=== PATIENT | male | born 1935 | race Caucasian/White ===

== ENCOUNTER 2021-02-04 21:29 | Emergency (ER) | payer MEDICARE, SELFPAY ==
--- NOTE | 2021-02-04 | ECG_ITS ---
Test Reason : FALL Blood Pressure : / mmHG Vent. Rate : 069 BPM Atrial Rate : 069 BPM P-R Int : 140 ms QRS Dur : 080 ms QT Int : 402 ms P-R-T Axes : 074 093 059 degrees QTc Int : 430 ms Normal sinus rhythm Rightward axis Borderline ECG When compared with ECG of 07-AUG-2019 19:53, QRS axis Shifted right Referred By: Sybil Frausto Electronically Signed By:KENY BOWMAN
--- NOTE | ~2021-02-04 | CT_ITS ---
EXAMINATION: CT HEAD WITHOUT CONTRAST CLINICAL INFORMATION: Frequent falls COMPARISON: CT head 07/03/2014. TECHNIQUE: Contiguous axial imaging was performed from the skull base to vertex without intravenous administration of contrast. This CT examination was performed using dose optimization techniques as appropriate, variously including the following: *Automated exposure control *Adjustment of mA and/or kV according to patient size (this includes techniques or standardized protocols for targeted exams where dose is matched to indication/reason for exam; i.e. extremities or head) *Use of iterative reconstruction technique DLP: 705 mGy-cm FINDINGS: No intracranial hemorrhage, tumors or acute infarcts are noted. Moderate-marked diffuse commensurate prominence of ventricles and sulci is visualized. Segmental calcific atherosclerotic plaques are present in the cavernous portions of the internal carotid arteries. Bilateral ocular lens extractions are demonstrated. No significant opacification of the visualized paranasal sinuses, mastoid air cells and middle ear cavities. Bilateral soft tissue density within the external auditory canals likely representing cerumen. CT/CT head/brain wo con IMPRESSION: 1. No acute intracranial abnormalities. 2. Diffuse parenchymal volume loss the brain with findings slightly progressed compared with 07/03/2014.
--- NOTE | ~2021-02-04 | XR_ITS ---
EXAMINATION: XR CHEST CLINICAL INFORMATION: Cough COMPARISON: 08/07/2019 TECHNIQUE: Frontal view of the chest was obtained. FINDINGS: Lungs are mildly hypoinflated. Otherwise there is been no significant interval change when compared to the prior study. No significant abnormality is noted involving the heart, lungs, mediastinum, bony thorax or soft tissues. XR/XR chest 1V IMPRESSION: No acute intrathoracic disease
[2021-02-04 21:36] VITALS: BP 139/64; PULSE 76; RESP 18; TEMP 36.6; O2SAT 98
[2021-02-04 21:47] VITALS: BP 118/72; PULSE 74; RESP 15; TEMP 37; O2SAT 97; O2SAT 98; BMI 24.3
[2021-02-04 22:47] LABS: MANUAL DIFF FLAG NO
[2021-02-04 22:49] LABS: Basophils Absolute Auto 0.1 X10*3/uL (0.0-0.2); Basophils Percent Auto 0.8 % (0-2); Eosinophils Absolute Auto 0.1 X10*3/uL (0.0-0.4); Eosinophils Percent Auto 1.6 % (0-4); Hematocrit 50.1 % (42-52); Hemoglobin 16.4 g/dl (14.0-18.0); Imm Gran Abs Auto 0.05 X10*3/uL (0.00-0.03); Imm Gran Pct Auto 0.6 % (0.0-0.4); Lymphocytes Absolute Auto 1.7 X10*3/uL (1.2-4.9); Lymphocytes Percent Auto 19.4 % (20-40); Mean Corpuscular HGB Conc 32.7 g/dl (31.0-36.0); Mean Corpuscular Hemoglobin 32.9 pg (27.0-33.0); Mean Corpuscular Volume 100.6 fL (80-98); Monocytes Absolute Auto 0.4 X10*3/uL (0.1-1.2); Neutrophils Absolute Auto 6.3 X10*3/uL (2.0-8.3); Neutrophils Percent Auto 72.6 % (45-73); Platelet Count 217 X10*3/uL (160-400); Red Blood Count 4.98 X10*6/uL (4.60-5.80); Red Cell Distribution Width 14.1 % (11.0-16.0); White Blood Count 8.7 X10*3/uL (4.8-10.8)
[2021-02-04 22:54] LABS: INTERNATIONAL NORM RATIO 0.9 (0.9-1.1); Prothrombin Time 10.5 SEC (9.9-13.0)
--- NOTE | 2021-02-04 23:00 | ED.WEAKNESS ---
HPI - Weakness General Chief complaint: Weakness Stated complaint: fall weakness Time Seen by Provider: 02/04/21 22:27 Source: patient and family () Mode of arrival: ambulatory History of Present Illness HPI Narrative: 85-year-old male brought in by mother after he had some difficulty coming down the stairs whereby he slid down onto use were [place] and she denies that he hit his head or loss consciousness. She states that ?this he was not there?, but otherwise denies any recent fevers, chills, decrease in appetite and notes that her who has baseline dementia has otherwise been eating and drinking and urinating without difficulty. She does report that patient has had approximately 2 weeks of more frequent falls at home. Related Data Home Medications Medication Instructions Recorded Confirmed finasteride 5 mg tablet 5 mg PO DAILY 09/23/20 09/23/20 pantoprazole 40 mg tablet,delayed 40 mg PO DAILY 09/23/20 09/23/20 release Previous Rx's Medication Instructions Recorded cholecalciferol (vitamin D3) 50 50 mcg PO DAILY #90 cap 06/10/20 mcg (2,000 unit) capsule cyanocobalamin (vitamin B-12) 1,000 mcg PO DAILY #90 tab 06/29/20 1,000 mcg tablet gemfibrozil 600 mg tablet 600 mg PO BID 90 Days #180 tab 01/04/21 cephalexin 500 mg capsule 500 mg PO QID 7 Days #28 cap 02/05/21 Allergies Allergy/AdvReac Type Severity Reaction Status Date / Time No Known Allergies Allergy Mild NOT Unverified 09/23/20 16:27 APPLICABLE Review of Systems Review of Systems: Pertinent positives and negatives as stated in HPI 10 point review systems is otherwise negative. [facility] Past Medical History Source: nursing notes reviewed Medical History Alzheimers disease Crohn's disease Social History Social History Alcohol intake: unknown Patient Tobacco Use Status: Current everyday Tobacco user Cigarette Packs Per Day: 1 Use of substances other than those prescribed or required for medical reasons: No Advance Directives: No Advance Directives Information Provided: No Physical Exam Vital Signs: Vital Signs: Last Vital Signs Temp 98.6 F 02/05/21 02:00 Pulse 101 H 02/05/21 02:57 Resp 16 02/05/21 02:52 BP 139/62 02/05/21 02:57 Pulse Ox 97 02/05/21 02:52 Body Mass Index 24.3 VITAL SIGNS: Reviewed. GENERAL: Well developed, well nourished, in no acute distress. HEAD: Normocephalic/atraumatic EYES: PERRLA, EOMI OROPHARYNX: no oral lesions noted, posterior pharynx clear LUNGS: Normal breath sounds. No adventitious sounds or accessory muscle use. SpO2<98> CARDIOVASCULAR: Regular rate and rhythm without noted murmurs, no JVD or lower extremity edema. ABDOMEN: Soft, non-tender, non-distended with bowel sounds, no pelvis pain MUSCULOSKELETAL: No tenderness, deformities, or effusions noted on gross inspection. EXTREMITIES: No cyanosis, clubbing or edema. SKIN: Inspection of the skin reveals no rashes, ulcerations, jaundice, pallor, or petechiae. NEUROLOGIC: Alert and oriented x 3. Strength and sensation to light touch were grossly intact x 4, no facial asymmetry, no pronator drift, cranial nerves 2-12 grossly intact, cerebellar testing is without deficit Course Course Course Narrative: 85-year-old male with history and clinical presentation consistent with possible dimension will rule out any infectious, anemia, intracranial etiologies for patient's increased fall frequency. Review of all investigations negative for any acute findings other than UTI which may be have contributed to patient's unsteady gait with falls that patient's spouse was observing. However, patient's is concerned about being able to transfer him back and forth to the car and expresses that she feels it may be a little too much for her and she is interested in getting some help at home. CT scan appears to be consistent with likely progression of patient's underlying dementia. Will involve physical therapy and case management for possible in-home services. Signed out patient to oncoming provider. Reevaluation(s) Reevaluation #1: Patient placed in physician observation because the patient needed more time for evaluation by case management and physical therapy At the time observation was started the patient's vital signs were stable, patient is alert and oriented, neuro: Nonfocal, CV RRR, lungs clear Time: 04:45 MDM - Weakness Lab Data Result diagrams: 02/04/21 22:41 02/04/21 22:40 Labs: Lab Results 02/04/21 02/04/21 02/04/21 Range/Units 22:40 22:40 22:41 WBC 8.7 (4.8-10.8) X10*3/uL RBC 4.98 (4.60-5.80) X10*6/uL Hgb 16.4 (14.0-18.0) g/dl Hct 50.1 (42-52) % MCV 100.6 H (80-98) fL MCH 32.9 (27.0-33.0) pg MCHC 32.7 (31.0-36.0) g/dl RDW 14.1 (11.0-16.0) % Plt Count 217 (160-400) X10*3/uL MPV 10.0 (9.4-12.4) fL Immature Gran % (Auto) 0.6 H (0.0-0.4) % Neut % (Auto) 72.6 (45-73) % Lymph % (Auto) 19.4 L (20-40) % [place] % (Auto) 5.0 (2-11) % Eos % (Auto) 1.6 (0-4) % Baso % (Auto) 0.8 (0-2) % Lymph # (Auto) 1.7 (1.2-4.9) X10*3/uL [place] # (Auto) 0.4 (0.1-1.2) X10*3/uL Eos # (Auto) 0.1 (0.0-0.4) X10*3/uL Baso # (Auto) 0.1 (0.0-0.2) X10*3/uL Abs Immat Gran (auto) 0.05 H (0.00-0.03) X10*3/uL Absolute Neuts (auto) 6.3 (2.0-8.3) X10*3/uL Absolute Nucleated RBC 0.000 (0.0-0.012) X10*3/uL Nucleated RBC % (auto) 0.0 (0.0-0.2) /100WBC PT (9.9-13.0) SEC INR (0.9-1.1) Sodium 139 (135-145) mmol/L Potassium 5.7 H (3.3-5.1) mmol/L Chloride 107 (96-108) mmol/L Carbon Dioxide 24 (22-29) mmol/L Anion Gap 14 (12-20) BUN 14 (9-16) mg/dL Creatinine 1.21 (0.5-1.4) mg/dL Estim Creat Clear Calc 43.9 Estimated GFR 57 Random Glucose 109 (60-115) mg/dL Calcium 9.4 (8.4-10.2) mg/dL Total Bilirubin 0.9 (0.0-1.0) mg/dL AST 15 (5-37) U/L ALT 11 (0-40) U/L Alkaline Phosphatase 84 (39-117) U/L Troponin I High Sens < 3.5 (<3.5-35.0) ng/L Total Protein 7.5 (6.5-8.0) g/dL Albumin 4.2 (3.5-5.0) g/dL Urine Color Urine Appearance Urine pH (5.0-8.0) Ur Specific [place] (1.005-1.025) Urine Protein (NEG-TRACE) MG/DL Urine Glucose (UA) (NEG) MG/DL Urine Ketones (NEG) MG/DL Urine Blood (NEG) Urine Nitrite (NEG) Ur Leukocyte Esterase (NEG) Urine RBC (0) /HPF Urine WBC (0-4) /HPF Ur Squamous Epith Cells /LPF Urine Bacteria /LPF Urine Mucus /LPF COVID-19 (MARY KATE) (Negative) COVID-19 Clin Com 02/04/21 02/04/21 02/05/21 Range/Units 22:41 22:41 02:27 WBC (4.8-10.8) X10*3/uL RBC (4.60-5.80) X10*6/uL Hgb (14.0-18.0) g/dl Hct (42-52) % MCV (80-98) fL MCH (27.0-33.0) pg MCHC (31.0-36.0) g/dl RDW (11.0-16.0) % Plt Count (160-400) X10*3/uL MPV (9.4-12.4) fL Immature Gran % (Auto) (0.0-0.4) % Neut % (Auto) (45-73) % Lymph % (Auto) (20-40) % [place] % (Auto) (2-11) % Eos % (Auto) (0-4) % Baso % (Auto) (0-2) % Lymph # (Auto) (1.2-4.9) X10*3/uL [place] # (Auto) (0.1-1.2) X10*3/uL Eos # (Auto) (0.0-0.4) X10*3/uL Baso # (Auto) (0.0-0.2) X10*3/uL Abs Immat Gran (auto) (0.00-0.03) X10*3/uL Absolute Neuts (auto) (2.0-8.3) X10*3/uL Absolute Nucleated RBC (0.0-0.012) X10*3/uL Nucleated RBC % (auto) (0.0-0.2) /100WBC PT 10.5 (9.9-13.0) SEC INR 0.9 (0.9-1.1) Sodium (135-145) mmol/L Potassium (3.3-5.1) mmol/L Chloride (96-108) mmol/L Carbon Dioxide (22-29) mmol/L Anion Gap (12-20) BUN (9-16) mg/dL Creatinine (0.5-1.4) mg/dL Estim Creat Clear Calc Estimated GFR Random Glucose (60-115) mg/dL Calcium (8.4-10.2) mg/dL Total Bilirubin (0.0-1.0) mg/dL AST (5-37) U/L ALT (0-40) U/L Alkaline Phosphatase (39-117) U/L Troponin I High Sens (<3.5-35.0) ng/L Total Protein (6.5-8.0) g/dL Albumin (3.5-5.0) g/dL Urine Color YELLOW Urine Appearance HAZY Urine pH 6.5 (5.0-8.0) Ur Specific [place] 1.010 (1.005-1.025) Urine Protein NEG (NEG-TRACE) MG/DL Urine Glucose (UA) NEG (NEG) MG/DL Urine Ketones NEG (NEG) MG/DL Urine Blood NEG (NEG) Urine Nitrite NEG (NEG) Ur Leukocyte Esterase 3+ H (NEG) Urine RBC 0-2 (0) /HPF Urine WBC 50-75 H (0-4) /HPF Ur Squamous Epith Cells TRACE /LPF Urine Bacteria 4+ /LPF Urine Mucus 2+ /LPF COVID-19 (MARY KATE) Negative (Negative) COVID-19 Clin Com See Note ECG Data Attestation: I personally reviewed and interpreted this ECG as follows: Prior ECG tracings: not available for review Interpretation: Normal sinus rhythm, HR-69, no STEMI, WI/QRS/QTC are within normal limits. Discharge Plan Discharge Clinical Impression: Dementia, Falls, Acute UTI Prescriptions: New cephalexin 500 mg capsule 500 mg PO QID 7 Days Qty: 28 RF: 0 No Action cholecalciferol (vitamin D3) 50 mcg (2,000 unit) capsule 50 mcg PO DAILY Qty: 90 RF: 2 cyanocobalamin (vitamin B-12) 1,000 mcg tablet 1,000 mcg PO DAILY Qty: 90 RF: 3 gemfibrozil 600 mg tablet 600 mg PO BID 90 Days Qty: 180 RF: 1 pantoprazole 40 mg tablet,delayed release (DR/EC) 40 mg PO DAILY RF: 0 finasteride 5 mg tablet 5 mg PO DAILY RF: 0 Referrals: David Young, TECHNICAL EXPERT-BC [Primary Care Provider] - 2 days
[2021-02-04 23:04] LABS: Alanine Aminotransferase 11 U/L (0-40); Albumin Level 4.2 g/dL (3.5-5.0); Alkaline Phosphatase 84 U/L (39-117); Anion Gap 14 (12-20); Aspartate Amino Transferase 15 U/L (5-37); Bilirubin Total 0.9 mg/dL (0.0-1.0); Blood Urea Nitrogen 14 mg/dL (9-16); Calcium 9.4 mg/dL (8.4-10.2); Carbon Dioxide 24 mmol/L (22-29); Chloride 107 mmol/L (96-108); Creatinine Clr Calc Pharmacy 43.9; Estimated Glomerular Filt Rate 57; Glucose Random 109 mg/dL (60-115); Potassium 5.7 mmol/L (3.3-5.1); Sodium 139 mmol/L (135-145); Total Protein 7.5 g/dL (6.5-8.0)
[2021-02-04 23:06] LABS: COVID-19 Test Negative (Negative)
[2021-02-04 23:12] LABS: Troponin-I High Sensitivity < 3.5 ng/L (<3.5-35.0)
[2021-02-05] VITALS (7 sets, daily range): BP systolic 117–151; BP diastolic 44–64; PULSE 75–101; RESP 15–16; TEMP 37; O2SAT 97–98
[2021-02-05] MEDS: 0.9 % Sodium Chloride 1,000 ML 999 ML IV (01:00)
[2021-02-05 02:38] LABS: Appearance Urine HAZY; Color Urine YELLOW; Glucose Urine UA NEG (NEG); Leukocyte Esterase Urine 3+ (NEG); Nitrite Urine NEG (NEG); PH 6.5 (5.0-8.0); UACC Culture Trigger YES; Urine Blood NEG (NEG); Urine Ketones NEG (NEG); Urine Protein NEG (NEG-TRACE)
[2021-02-05 03:10] LABS: Bacteria Urine 4+ /LPF; Mucus Urine 2+ /LPF; RBC Urine 0-2 /HPF (0); Squamous Epithelial Cell Urine TRACE /LPF; WBC Urine 50-75 /HPF (0-4)
[2021-02-05] MEDS: cephALEXin 500 MG CAPSULE PO (06:29)
[2021-02-05 06:35] LABS: Anion Gap 13 (12-20); Blood Urea Nitrogen 13 mg/dL (9-16); Calcium 8.9 mg/dL (8.4-10.2); Carbon Dioxide 23 mmol/L (22-29); Chloride 108 mmol/L (96-108); Creatinine Clr Calc Pharmacy 50.6; Estimated Glomerular Filt Rate > 60; Glucose Random 94 mg/dL (60-115); Potassium 4.4 mmol/L (3.3-5.1); Sodium 140 mmol/L (135-145)
== END 2021-02-05 08:00 | disposition home or self-care (01) ==
PROVIDERS: Emergency Provider Student in an Organized Health Care Education/Training Program; PCP Nurse Practitioner Family
DX: N39.0 Urinary tract infection, site not specified (principal); F03.90 Unspecified dementia, unspecified severity, without behavioral disturbance, psychotic disturbance, mood disturbance, and anxiety; Z91.81 History of falling; Z20.822 Contact with and (suspected) exposure to COVID-19
CPT/HCPCS: 36415; 70450; 71045; 80048; 80053; 81001; 84484; 85025; 85610; 87086; 87088; 87186; 87635; 93005; 96360; 99285

== ENCOUNTER 2021-05-12 15:48 | Emergency (ER) | payer MEDICARE, SELFPAY ==
[2021-05-12 16:01] VITALS: BP 151/89; BP 154/66; PULSE 78; PULSE 86; RESP 17; TEMP 36.4; O2SAT 97; BMI 32.1
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
[2021-05-12 16:07] VITALS: BP 154/66; PULSE 78; RESP 17; TEMP 36.4; O2SAT 97
[2021-05-12 16:28] LABS: Appearance Urine HAZY; Color Urine YELLOW; Glucose Urine UA NEG (NEG); Leukocyte Esterase Urine 1+ (NEG); Nitrite Urine NEG (NEG); Specific Gravity - Urine 1.025 (1.005-1.025); UACC Culture Trigger YES; Urine Blood NEG (NEG); Urine Ketones NEG (NEG); Urine Protein TRACE MG/DL (NEG-TRACE)
[2021-05-12 16:44] LABS: Bacteria Urine 2+ /LPF; RBC Urine 0-2 /HPF (0)
[2021-05-12 16:45] LABS: Calcium Oxalate Crystals Urine 1+ /LPF
[2021-05-12 16:50] LABS: COVID-19 Test Negative (Negative); IDNOW Serial# 9DD0AD1C
[2021-05-12 18:29] LABS: Glucose, Whole Blood 86 mg/dL (60-115)
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
[2021-05-13 01:04] VITALS: BP 142/69; PULSE 79; RESP 16; TEMP 36.4; O2SAT 98
--- NOTE | 2021-05-13 06:32 | PC.NURSE ---
Patient slept through the night, no distress observed/reported, patient confused at baseline requires constant redirection to orient to his room, patient is being cleared by the crises, case management referral completed, VSS, behavior cooperative and non concerning at this time, will continue to monitor.
--- NOTE | 2021-05-13 07:21 | PC.NURSE ---
patient remains at rest at present, respirations are even and unlabored, patient appears in no distress
[2021-05-13] MEDS: gemfibroziL 600 MG TABLET PO ×2 (09:38→21:23)
[2021-05-13] MEDS: Finasteride 5 MG TABLET PO (09:38)
[2021-05-13] MEDS: Cyanocobalamin (Vitamin B-12) 1,000 MCG TABLET 1000 MCG PO (09:38)
--- NOTE | 2021-05-13 09:58 | MHC.CM.ED ---
Addendum entered by Angela Munoz 05/13/21 13:15: Received return telephone call from Rony at [facility] in [place]. They have no bed availability at this time. Original Note: Patient remains in ER. Spoke with patient's daughter, Lila via telephone at [phone]. Lila has been working to try to get services in patient's home. She arranged meals on wheels through [facility]. Patient and go to bed around 4am and sleep most of the day. [facility] would deliver betweem 9am-11am. If patient or didn't answer the door, they would contact Lila. Patient's , Mariluz did not like this because it interrupted their sleep. Lila has been looking into correction care for patient. They tried to get [facility] into the [facility] because he's a [employer] [place]. However, they currently have no beds available. Lila is in the process of completing [employer] application. Patient has no property. They sold their home over 10 years ago. Patient does have an annuity that can be used for private pay LTC until [employer] [place] is approved. Lila requesting T[facility]W see if [facility] [place]. T[facility]W left a [facility]icemail with [facility]. Mary also agreeable for referral being broadcasted locally. Referral broadcasted in [employer]. Continue to monitor for d/c needs.
--- NOTE | 2021-05-13 12:04 | MHC.CARE ---
CARE Team spoke to this patient in [facility] for risk assessment. He was resting but woke easily, appeared pleasantly confused, when asked how he was doing stated, ?Great, I?ve been for 4 days,? laughed, said he was joking. Denied symptoms of depression and anxiety, intention to harm self or others, and has no documented history of mental illness. Since arrival in the emergency department patient has been cooperative with treatment, calm without behavioral problems, and no exit seeking behavior.
--- NOTE | 2021-05-13 13:58 | MHC.CM.ED ---
Karina from [facility] for [facility] will be on-site to visit patient. Patient's daughter, Lila goncalves.
[2021-05-13 14:26] LABS: MANUAL DIFF FLAG NO
[2021-05-13 14:27] LABS: Basophils Absolute Auto 0.1 X10*3/uL (0.0-0.2); Basophils Percent Auto 0.6 % (0-2); Eosinophils Absolute Auto 0.2 X10*3/uL (0.0-0.4); Eosinophils Percent Auto 2.5 % (0-4); Hematocrit 44.8 % (42.0-52.0); Hemoglobin 14.7 g/dl (14.0-18.0); Imm Gran Abs Auto 0.02 X10*3/uL (0.00-0.03); Imm Gran Pct Auto 0.2 % (0.0-0.4); Lymphocytes Absolute Auto 2.1 X10*3/uL (1.2-4.9); Mean Corpuscular HGB Conc 32.8 g/dl (31.0-36.0); Mean Corpuscular Hemoglobin 32.6 pg (27.0-33.0); Mean Corpuscular Volume 99.3 fL (80.0-98.0); Mean Platelet Volume 10.5 fL (9.4-12.4); Monocytes Absolute Auto 0.6 X10*3/uL (0.1-1.2); Monocytes Percent Auto 7.3 % (2-11); Neutrophils Absolute Auto 5.2 x10*3/uL (2.0-8.3); Neutrophils Percent Auto 63.4 % (45-73); Platelet Count 190 X10*3/uL (160-400); Red Blood Count 4.51 X10*6/uL (4.60-5.80); Red Cell Distribution Width 13.3 % (11.0-16.0); White Blood Count 8.2 X10*3/uL (4.8-10.8)
--- NOTE | 2021-05-13 14:41 | MHC.CM.ED ---
Cierra from [facility] on ite. Visited with patient and . Cierra feels they will be able to accept patient at [facility]. Cierra will contact patient's daughter, Lila via telephone. 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 T/w spoke with Physical Trainer Matthew's office. They will fax a copy of patient's HCP to T/W. Continue to monitor for d/c needs.
[2021-05-13 14:44] LABS: Alanine Aminotransferase 11 U/L (0-40); Albumin Level 3.5 g/dL (3.5-5.0); Alkaline Phosphatase 70 U/L (39-117); Anion Gap 12 (12-20); Aspartate Amino Transferase 17 U/L (5-37); Bilirubin Direct 0.3 mg/dL (0.0-0.5); Bilirubin Total 0.6 mg/dL (0.0-1.0); Blood Urea Nitrogen 13 mg/dL (9-16); Calcium 8.3 mg/dL (8.4-10.2); Carbon Dioxide 23 mmol/L (22-29); Chloride 112 mmol/L (96-108); Creatinine Clr Calc Pharmacy 52.8; Estimated Glomerular Filt Rate > 60; Glucose Random 110 mg/dL (60-115); Potassium 3.7 mmol/L (3.3-5.1); Sodium 143 mmol/L (135-145); Total Protein 6.2 g/dL (6.5-8.0)
--- NOTE | 2021-05-13 18:57 | PC.NURSE ---
Pt has remained calm and cooperative from 1500 to 1900. Case mgt reviewed plan of care with opt and his and they are agreeablt to pending admission to [facility] spring. pt ambulating freely in pod and interacting appropriatly with staff.
[2021-05-13 20:33] VITALS: BP 141/55; PULSE 88; TEMP 36.6; O2SAT 96
[2021-05-13 23:17] VITALS: BP 146/68; PULSE 83; RESP 16; TEMP 36.6; O2SAT 94
--- NOTE | 2021-05-14 06:02 | PC.NURSE ---
Patient slept whole evening but slept intermittently during the night, no distress observed/reported, patient often visits bathroom and requires room orientation due to confusion. Medication compliant. Behavior pleasant and cooperative, patient got accepted to [facility] pending admission process, see case management note, VS at baseline, will continue to monitor.
--- NOTE | 2021-05-14 07:11 | PC.NURSE ---
patient appears to be awake for the day was at rest upon t/ws arrival to unit, respiration even and unlabored patient appears in no distress
[2021-05-14] MEDS: Omeprazole 20 MG CAPSULE.DR PO (08:13)
[2021-05-14] MEDS: gemfibroziL 600 MG TABLET PO ×2 (08:13→20:41)
[2021-05-14] MEDS: Finasteride 5 MG TABLET PO (08:13)
[2021-05-14] MEDS: Cyanocobalamin (Vitamin B-12) 1,000 MCG TABLET 1000 MCG PO (08:13)
[2021-05-14 08:49] VITALS: BP 141/72; PULSE 64; RESP 16; TEMP 36.3; O2SAT 97
--- NOTE | 2021-05-14 12:38 | MHC.CM.PN ---
pt's family is touring [facility] and finalizing financial business c the sn[facility] . one they produce a check to the sn[facility] patient should be able to trnfr. cm to cont. to follow.
[2021-05-14 16:04] VITALS: BP 123/45; PULSE 81; TEMP 36.5; O2SAT 96
[2021-05-15 00:28] VITALS: BP 122/62; PULSE 79; RESP 16; TEMP 36.3; O2SAT 98
--- NOTE | 2021-05-15 05:16 | PC.NURSE ---
Patient slept through the night, no distress observed/reported, patient presents baseline confusion which often requires orientation, medication compliant, behavior appropriate and cooperative, case management coordinating d/c to [facility] with family, VS at baseline, will continue to monitor.
--- NOTE | 2021-05-15 07:19 | PC.NURSE ---
patient appears to remain asleep at present, respirations are even and unlabored, patient appears in no distress
[2021-05-15] MEDS: Omeprazole 20 MG CAPSULE.DR PO (10:46)
[2021-05-15] MEDS: Finasteride 5 MG TABLET PO (10:47)
[2021-05-15] MEDS: gemfibroziL 600 MG TABLET PO ×2 (10:47→20:09)
[2021-05-15] MEDS: Cyanocobalamin (Vitamin B-12) 1,000 MCG TABLET 1000 MCG PO (10:47)
--- NOTE | 2021-05-15 15:42 | MHC.CM.ED ---
Patient remains in ER. Reached out to [facility] about bed and finances. Waiting for a response. Anticipate patient will be here overnight. Continue to monitor for d/c needs.
--- NOTE | 2021-05-15 16:30 | PC.NURSE ---
clients comes in and states she wants to dc patient, notified case mgmt after care team. case management asked me to contact daughter HCP, phone number given is out of service. seems mildly confused couldnt operate phone. will speak to clients if she returns.
--- NOTE | 2021-05-15 17:05 | PC.NURSE ---
t/w attmeoted to call daughter and notify her/involve her in decision making in regards to dc of client home. left message saying patient was fine but to call us back
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
--- NOTE | 2021-05-16 05:53 | PC.NURSE ---
Patient slept through the night, no distress observed/reported, medication compliant, behavior appropriate, confusion at baseline, case management will coordinate bed search patient may be discharged to home, patient was observed with occasional cough, VSS, will continue to monitor.
[2021-05-16 06:04] VITALS: BP 140/69; PULSE 66; RESP 18; TEMP 36.9; O2SAT 97
--- NOTE | 2021-05-16 06:55 | PC.NURSE ---
patient remains asleep at present respirations are even and unlabored, patient appears in no distress
[2021-05-16] MEDS: Cyanocobalamin (Vitamin B-12) 1,000 MCG TABLET 1000 MCG PO (10:10)
[2021-05-16] MEDS: gemfibroziL 600 MG TABLET PO (10:11)
[2021-05-16] MEDS: Omeprazole 20 MG CAPSULE.DR PO (10:11)
[2021-05-16] MEDS: Finasteride 5 MG TABLET PO (10:11)
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
== END 2021-05-16 11:37 | disposition home or self-care (01) ==
PROVIDERS: Nurse Practitioner Family; Emergency Provider Emergency Medicine
DX: N39.0 Urinary tract infection, site not specified (principal); B95.2 Enterococcus as the cause of diseases classified elsewhere; G30.9 Alzheimer's disease, unspecified; F02.80 Dementia in other diseases classified elsewhere, unspecified severity, without behavioral disturbance, psychotic disturbance, mood disturbance, and anxiety; Z20.822 Contact with and (suspected) exposure to COVID-19
CPT/HCPCS: 36415; 80048; 80076; 81001; 82947; 85025; 87086; 87088; 87186; 87635; 99285